=== PATIENT | male | born 1985 | race Caucasian/White ===

== ENCOUNTER 2019-01-14 17:38 | Emergency (ER) | payer MEDICAID ==
[2019-01-14] MEDS ORDERED: HYDROMORPHONE HCL 2 MG/ML VIAL IVP ONE ×3 (17:47→21:47)
[2019-01-14] MEDS ORDERED: LORAZEPAM 2 MG/ML VIAL IV ONE (18:15)
--- NOTE | 2019-01-14 18:22 | Emergency Department Record ---
History of Present Illness - General Chief complaint: Extremity Problem Stated complaint: RT HAND LAC/TABLE SAW Time Seen by Provider: 01/14/19 18:07 Source: Patient Mode of Arrival: Ambulatory Limitations: No limitations - History of Present Illness Initial comments: pt cut r index finger and r middle finger on table saw.. MD Complaint: Extremity pain Onset/Timin -: Minutes(s) Location: Right, Hand History of Same: No Severity scale (1-10): 10 Quality: Sharp Consistency: Constant Improves with: Nothing Worsens with: Exertion, Palpation Associated Symptoms: Denies other symptoms - Related Data Previous Rx's Medication Instructions Recorded Cephalexin [Keflex] 500 mg PO TID #28 cap 01/14/19 Hydrocodone/Acetaminophen [[place] 1 each PO Q6HR #7 tablet 01/14/19 5-325 Tablet] Allergies Allergy/AdvReac Type Severity Reaction Status Date / Time amoxicillin Allergy PT UNSURE Verified 01/14/19 17:45 OF REACTION Travel Screening - Travel/Exposure Within Last 30 Days Have you traveled within the last 30 days?: No - Travel/Exposure Within Last Year Have you traveled outside the [place] in the last year?: No - Additonal Travel Details Have you been exposed to anyone with a communicable illness?: No - Travel Symptoms Symptom Screening: None Review of Systems Reviewed: No additional complaints except as noted below Constitutional: Reports: As per HPI. Denies: Chills, Fever, Malaise, Night sweats, Weakness, Weight change Eyes: Reports: As per HPI. Denies: Eye discharge, Eye pain, Photophobia, Vision change ENT: Reports: As per HPI. Denies: Congestion, Dental pain, Ear pain, Epistaxis, Hearing loss, Throat pain Respiratory: Reports: As per HPI. Denies: Cough, Dyspnea, Hemoptysis, Stridor, Wheezes Cardiovascular: Reports: As per HPI. Denies: Arrhythmia, Chest pain, Dyspnea on exertion, Edema, Murmurs, Orthopnea, Palpitations, Paroxysmal nocturnal dyspnea, Rheumatic Fever, Syncope Endocrine: Reports: As per HPI. Denies: Fatigue, Heat or cold intolerance, Polydipsia, Polyuria Gastrointestinal: Reports: As per HPI. Denies: Abdominal pain, Constipation, Diarrhea, Hematemesis, Hematochezia, Melena, Nausea, Vomiting Genitourinary: Reports: As per HPI. Denies: Dysuria, Frequency, Hematuria, Incontinence, Retention, Testicular pain, Testicular mass, Urgency Musculoskeletal: Reports: As per HPI. Denies: Arthralgia, Back pain, Gout, Joint swelling, Myalgia, Neck pain Skin: Reports: As per HPI. Denies: Bruising, Change in color, Change in hair/nails, Lesions, Pruritus, Rash Neurological: Reports: As per HPI. Denies: Abnormal gait, Confusion, Headache, Numbness, Paresthesias, Seizure, Tingling, Tremors, Vertigo, Weakness Psychiatric: Reports: As per HPI. Denies: Anxiety, Auditory hallucinations, Depression, Homicidal thoughts, Suicidal thoughts, Visual hallucinations Hematological/Lymphatic: Reports: As per HPI. Denies: Anemia, Blood Clots, Easy bleeding, Easy bruising, Swollen glands Past Medical History - SOCIAL HISTORY Smoking Status: Current every day smoker Alcohol Use: Occasional Drug Use: None - RESPIRATORY Hx Respiratory Disorders: No - CARDIOVASCULAR Hx Cardio Disorders: No - NEURO Hx Neuro Disorders: No - GI Hx GI Disorders: No - Hx Genitourinary Disorders: No - ENDOCRINE Hx Endocrine Disorders: No - MUSCULOSKELETAL Hx Musculoskeletal Disorders: No - PSYCH Hx Psych Problems: No - HEMATOLOGY/ONCOLOGY Hx Hematology/Oncology Disorders: No Family Medical History Any Significant Family History?: No Physical Exam - General General Appearance: Alert, Oriented x3, Cooperative, Moderate distress - Head Head exam: Normal inspection - Eye Eye exam: Normal appearance, PERRL, EOMI Pupils: Normal accommodation - ENT ENT exam: Normal exam, Mucous membranes moist, Normal external ear exam, Normal orophraynx Ear exam: Normal external inspection. negative: External canal tenderness Nasal Exam: Normal inspection. negative: Discharge, Sinus tenderness Mouth exam: Normal external inspection, Tongue normal Teeth exam: Normal inspection. negative: Dental caries Throat exam: Normal inspection. negative: Tonsillar erythema, Tonsillar exudate - Neck Neck exam: Normal inspection, Full ROM. negative: Tenderness - Respiratory Respiratory exam: Normal lung sounds bilaterally. negative: Respiratory distress - Cardiovascular Cardiovascular Exam: Regular rate, Normal rhythm, Normal heart sounds - GI/Abdominal GI/Abdominal exam: Soft, Normal bowel sounds. negative: Tenderness - Rectal Rectal exam: Deferred - exam: Deferred - Extremities Extremities exam: Normal capillary refill, Tenderness. negative: Full ROM Image of Hand: 1 - lac with bony deformity and tendon exposure 2 - openn fracture w tendon involvement 3 - open fractures w bony fragments and tendon involvement - Back Back exam: Reports: Normal inspection, Full ROM. Denies: Muscle spasm, Rash noted, Tenderness - Neurological Neurological exam: Alert, Normal gait, Oriented X3, Reflexes normal - Psychiatric Psychiatric exam: Normal affect, Normal mood - Skin Skin exam: Dry, Intact, Normal color, Warm Course - Reevaluation(s) Reevaluation #1: 01/14/19 21:51 pt was in extreme pain. he was given dilaudid and ativan and a digital block w marcaine and lido were done on each finger 2,3. his hand is extremely dirty. hand was extensively cleansed w suboptimal results because of depth of dirt and uncoperativeness of pt. pt was d/w dr armetna who stated dress it with zeroform and he will see him tomorrow and schedule him for repair Disposition Disposition: Discharge Clinical Impression: Open displaced fracture of distal phalanx of finger Qualifiers: Encounter type: initial encounter Finger: index finger Laterality: right Qualified Code(s): S62.630B - Displaced fracture of distal phalanx of right index finger, initial encounter for open fracture Open fracture of middle phalanx of finger Qualifiers: Encounter type: initial encounter Finger: middle finger Fracture alignment: displaced Laterality: right Qualified Code(s): S62.622B - Displaced fracture of middle phalanx of right middle finger, initial encounter for open fracture Disposition: Home, Self-Care Condition: (1) Good Instructions: Hand Fracture (ED) Additional Instructions: follow up with dr armenta's, dr reza's office tomorrow. elevate hand return sooner if worse. no food after midnight. Prescriptions: Hydrocodone/Acetaminophen [[place] 5-325 Tablet] 1 each PO Q6HR #7 tablet Cephalexin [Keflex] 500 mg PO TID #28 cap Referrals: BRICE ARMENTA M.D. [MEDICAL DOCTOR] - Forms: Patient Portal Access Quality - Quality Measures Quality Measures: N/A - Blood Pressure Screening Does Patient Have Any of the Following: No Blood Pressure Classification: Pre-Hypertensive BP Reading Systolic Measurement: 129 Diastolic Measurement: 86 Screening for High Blood Pressure: < Pre-Hypertensive BP, F/U Documented > [G8950] Pre-Hypertensive Follow-up Interventions: Follow-up with rescreen every year.
[2019-01-14] MEDS ORDERED: CEFAZOLIN 1 Gram 1 GM/50 ML BAG IVPB ONE (20:56)
[2019-01-14] MEDS ORDERED: HYDROCODONE/APAP 5/325MG TABLET PO ONE (21:58)
--- NOTE | 2019-01-15 19:21 | RADIOLOGY REPORT ---
EXAM: FINGER(S), RIGHT HISTORY: TABLE SAW INJURY INVOLVING THE SECOND, THIRD, AND FOURTH FINGERS. TECHNIQUE: A complete right hand series was obtained, initially with five views of the right hand obtained with bandages overlying the second through fourth fingers, and subsequently three additional views obtained of the right hand once the bandages were removed. COMPARISON: None. ENCOUNTER: Initial. FINDINGS: There is marked soft tissue deformity of the distal end of the index finger with at least one, and probably multiple, small adjacent calcific fragments along the anterior and radial aspect of the tip of the right index finger, likely representing small fracture fragments from the tuft. Particularly on the oblique view without the bandages, there is a suggestion of a more vertical fracture line in the distal phalanx of the index finger as well extending from the radial border in the mid portion of the distal phalanx, proximally into the IP joint. This is difficult to confirm on the other views, however. There also appears to be a relatively superficial fracture of the mid portion of the middle phalanx of the right third finger along the dorsal aspect with several small fracture fragments along the ulnar aspect of the third finger at this level and with a soft tissue defect, particularly along the dorsal and ulnar aspect. Soft tissue defect at the distal end of the index finger is most prominent along the radial aspect. No definite fracture or prominent soft tissue defect seen involving the fourth finger. The thumb and fifth finger appear unremarkable. Small chronic-appearing bony density at the base of the fifth metacarpal. This may be developmental. There is fairly diffuse soft tissue swelling involving the second and third fingers. IMPRESSION: FRACTURES INVOLVING THE DISTAL PHALANX OF THE INDEX FINGER AND MIDDLE PHALANX OF THE THIRD FINGER, DESCRIBED ABOVE. OVERLYING SOFT TISSUE SWELLING WELL SOFT TISSUE DEFECTS AND SOME SMALL ADJACENT FRACTURE FRAGMENTS CONSISTENT WITH TABLE SAW INJURY. JOB NUMBER: [id number] [facility]
== END 2019-01-14 22:22 | disposition home or self-care (01) ==
LOC: ER 17:38
DX: S62.636B Displaced fracture of distal phalanx of right little finger, initial encounter for open fracture (principal); S62.622B Displaced fracture of middle phalanx of right middle finger, initial encounter for open fracture; S56.421A Laceration of extensor muscle, fascia and tendon of right index finger at forearm level, initial encounter; S56.423A Laceration of extensor muscle, fascia and tendon of right middle finger at forearm level, initial encounter; W31.2XXA Contact with powered woodworking and forming machines, initial encounter; F17.210 Nicotine dependence, cigarettes, uncomplicated
CPT/HCPCS: 64450; 73140; 96365; 96375; 96376; 99284